=== PATIENT | female | born 1930 | race Caucasian/White ===

== ENCOUNTER 2019-04-06 15:22 | Emergency (ER) | payer OTHER, BC ==
[2019-04-06 15:34] VITALS: TEMP 98.4; BMI 25.4
--- NOTE | 2019-04-06 16:31 | PDOC ---
History of Present Illness - General Chief Complaint: Urinary Problem Stated Complaint: URINARY PROBLEMS History Source: Patient Exam Limitations: No Limitations - History of Present Illness Initial Comments: 04/06/19 16:19 88 yo female pmh hypothyroidism, HTN and depression presents to the ED for 1 day of urinary retention. Pt states she goes to the bathroom regularly every morning but today was unusual because she did not feel the urge to urinate today and has not passed urine as yet. Pt went to urgent care and was told to o to the ED for urinary cath. Pt denies hx of urinary retention, kidney disfunction, abdominal pain, recent changes in bowel or bladder habits, F/C/N/ V. Of note, pt recently diagnosed with PNA, treated with moxifloxacin for the past 2 days. Past History - Past Medical History Allergies/Adverse Reactions: Allergies Allergy/AdvReac Type Severity Reaction Status Date / Time No Known Allergies Allergy Verified 04/06/19 15:28 Home Medications: Ambulatory Orders Moxifloxacin HCl [Avelox] 400 mg PO DAILY 04/06/19 COPD: No HTN: Yes Other medical history: pneumonia - Surgical History Cholecystectomy: Yes - Immunization History Immunization Up to Date: No - Suicide/Smoking/Psychosocial Hx Smoking History: Never smoked Have you smoked in the past 12 months: No Information on smoking cessation initiated: No Hx Alcohol Use: No Drug/Substance Use Hx: No Review of Systems - Review of Systems Constitutional: No: Chills, Fever Respiratory: No: Shortness of Breath Cardiac (ROS): No: Chest Pain ABD/GI: No: Constipated, Diarrhea, Nausea, Vomiting : Yes: Other (urinary reention today). No: Burning, Dysuria, Discharge, Frequency, Flank Pain, Hematuria, Incontinence Musculoskeletal: No: Back Pain Integumentary: No: Change in Color Neurological: No: Weakness *Physical Exam - Vital Signs Last Vital Signs Temp Pulse Resp BP Pulse Ox 98.4 F 81 16 94/53 L 96 04/06/19 15:30 04/06/19 15:30 04/06/19 15:30 04/06/19 15:30 04/06/19 15:30 - Physical Exam General Appearance: Yes: Nourished, Appropriately Dressed. No: Apparent Distress HEENT: positive: EOMI Neck: positive: Supple Respiratory/Chest: positive: Lungs Clear, Normal Breath Sounds. negative: Rapid RR, Crackles, Rales, Rhonchi, Stridor, Wheezing Cardiovascular: positive: Regular Rhythm, Regular Rate, S1, S2. negative: Edema , JVD, Murmur Vascular Pulses: Dorsalis-Pedis (R): 4+, Doralis-Pedis (L): 4+ Gastrointestinal/Abdominal: positive: Flat, Soft. negative: Pulsatile Mass, Protuberent, Distended, Guarding, Rebound, Tenderness Musculoskeletal: negative: CVA Tenderness Extremity: positive: Normal Capillary Refill, Normal Inspection Integumentary: positive: Normal Color, Dry, Warm Neurologic: positive: Fully Oriented, Alert, Normal Mood/Affect, Normal Response , Motor Strength 03/24 ED Treatment Course - LABORATORY CBC & Chemistry Diagram: 04/06/19 17:00 04/06/19 17:00 Medical Decision Making - Medical Decision Making 04/06/19 16:42 88 yo female presents to the ED with 1 day of urinary retention. Pt denies abdominal pain, hx of urinary retention, renal function hx, F/C/N/V Vitals WNL (BP repeated at bedside 112/62) DDX INLT: obstruction vs infection, decreased kidney function Pt bedside US shows approx 500 cc urine. No discomfort during exam labs sent UA pending [place] placed drains approx 300 cc 4 30 pm, will monitor output over the next few hours pt comfortable, no acute distress 04/06/19 18:30 Pt has urinary retention, will give 500 cc NS, leave the [place] in place until she sees Urology Labs WNL UA negative Pt stable and safe for DC home with Urology f/o *DC/Admit/Observation/Transfer Diagnosis at time of Disposition: Urinary retention - Discharge Dispostion Disposition: HOME Condition at time of disposition: Stable Decision to Admit order: No - Referrals Referrals: ON STAFF,NOT [Primary Care Provider] - Chaz Talley MD [Staff Physician] - - Patient Instructions Printed Discharge Instructions: DI for Urinary Retention in Women, DI for Urinary Catheter Removal, How to Care for Your [place] Catheter -- Female Additional Instructions: Please call the office of the Urologist referred to you as soon as possible. Keep the [place] Catheter in place until further direction from Urology. Return to the ER for new or concerning symptoms including but not limited to: high fevers, no output of urine from the catheter in 12 hours, output of blood in the catheter, abdominal pain, inability to eat or drink. Thank you - Post Discharge Activity
[2019-04-06 17:11] LABS: BASO % 0.8 % (0-2.0); EOS % 3.4 % (0-4.5); HEMATOCRIT 37.6 % (32.4-45.2); HEMOGLOBIN 12.5 GM/dL (10.7-15.3); LYMPH % 47.9 % (8-40); MCH 31.6 pg (25.7-33.7); MCHC 33.2 g/dl (32.0-36.0); MEAN CELL VOLUME 95.1 fl (80-96); MEAN PLT VOLUME 8.2 fl (7.5-11.1); MONO % 6.8 % (3.8-10.2); NEUT % 41.1 % (42.8-82.8); PLATELET COUNT 131 K/MM3 (134-434); RBC 3.95 M/mm3 (3.60-5.2); RDW 15.2 % (11.6-15.6); URINE APPEARANCE CLOUDY; URINE BILIRUBIN NEGATIVE (NEGATIVE); URINE COLOR DK YELLOW; URINE GLUCOSE (UA) NEGATIVE (NEGATIVE); URINE KETONE NEGATIVE (NEGATIVE); URINE LEUK ESTERASE NEGATIVE (NEGATIVE); URINE NITRITE NEGATIVE (NEGATIVE); URINE PROTEIN NEGATIVE (NEGATIVE); URINE UROBILINOGEN 0.2 mg/dL (0.2-1.0); WHITE BLOOD COUNT 7.4 K/mm3 (4.0-10.0)
[2019-04-06 17:41] LABS: ALBUMIN 3.4 g/dl (3.4-5.0); BILIRUBIN,TOTAL 0.4 mg/dL (0.2-1); CALCIUM 8.7 mg/dL (8.5-10.1); CREATININE 1.6 mg/dL (0.55-1.3); POTASSIUM 4.4 mmol/L (3.5-5.1); TOT PROT 6.4 g/dl (6.4-8.2)
[2019-04-06] MEDS ORDERED: SODIUM CHLORIDE 500 ML IV STA (18:06)
--- NOTE | 2019-04-06 18:21 | PDOC ---
Documentation entered by Luz Mcneil SCRIBE, acting as scribe for Zachary Sandhu MD. Zachary Sandhu MD: This documentation has been prepared by the jaceibe, Luz Mcneil SCRIBE, under my direction and personally reviewed by me in its entirety. I confirm that the documentation accurately reflects all work, treatment, procedures, and medical decision making performed by me. Attending Attestation - Resident Resident Name: Luis Sky - ED Attending Attestation I have performed the following: I have examined & evaluated the patient, The case was reviewed & discussed with the resident, I agree w/resident's findings & plan, Exceptions are as noted - HPI HPI: 04/06/19 16:33 The patient is a 88 year old female with a significant past medical history of hypothyroidism and hypertension who presents to the emergency department with no urine output since last night. The patient states that she usually wakes up and urinates every morning, but today she noticed that she didnt go at all. Pt notes that she doesn't even feel an urge to go. Denies abdominal or flank pain. Pt doesn't recall what time she voided last night, but son states that she woke up in the middle of the night to urinate. She denies any history or urinary or kidney disfunction. She denies any fever, chills, nausea, vomiting, diarrhea, constipation or other urinary symptoms. She denies any chest pain, shortness of breath, abdominal pain,headache or dizziness. The patient denies any other complaints. - Physicial Exam PE: 04/06/19 18:11 "GENERAL: Awake, alert, and fully oriented, in no acute distress. HEAD: No signs of trauma EYES: PERRLA, EOMI, sclera anicteric, conjunctiva clear ENT: Auricles normal inspection, hearing grossly normal, nares patent, oropharynx clear without exudates. Moist mucosa NECK: Nontender, no stepoffs, Normal ROM, supple, no lymphadenopathy, JVD, or masses LUNGS: Breath sounds equal, clear to auscultation bilaterally. No wheezes, and no crackles HEART: Regular rate and rhythm, normal S1 and S2, no murmurs, rubs or gallops ABDOMEN: Soft, nontender, normoactive bowel sounds. No guarding, no rebound. No masses EXTREMITIES: Normal range of motion, no edema. No clubbing or cyanosis. No cords, erythema, or tenderness NEUROLOGICAL: Cranial nerves II through XII intact. 5/5 strength and sensation in all extremities, Normal speech, normal gait, normal cerebellar function SKIN: Warm, Dry, normal turgor, no rashes or lesions noted - Medical Decision Making 04/06/19 18:12 88 F with no urine output since last night. Pt without abdominal distention or pain. Dan placed in ED with ~300 cc urine output Labs reveal Cr 1.6, with no prior to compare. Lytes otherwise normal Will give small fluid bolus given poor UOP over last 18 hours. However, 300 cc still meets criteria for urinary retention Will leave dan in place and have pt f/u with urology Pt is well appearing, with normal vitals. Clinically stable for DC at this time. I discussed the physical exam findings, ancillary test results and final diagnoses with the patient. I answered all of the patient's questions. The patient was satisfied with the care received and felt comfortable with the discharge plan and treatment plan. The patient agrees to follow up with the primary care physician within 24-72 hours.
[2019-04-06 18:44] LABS: PLATELET ESTIMATE SLT DECREASE
[2019-04-06 19:51] VITALS: BP 115/70; PULSE 74
== END 2019-04-06 19:50 | disposition home or self-care (01) ==
LOC: JER 15:22
PROC: 0T9B70Z Drainage of Bladder with Drainage Device, Via Natural or Artificial Opening (ICD-10-PCS; principal; 2019-04-06)
PROC: BT40ZZZ Ultrasonography of Bladder (ICD-10-PCS; 2019-04-06)
DX: R33.8 Other retention of urine (principal); I10 Essential (primary) hypertension; E03.9 Hypothyroidism, unspecified; Z87.01 Personal history of pneumonia (recurrent)
CPT/HCPCS: 36415; 51702; 76857; 80053; 81003; 85025; 87086; 99283-25